=== PATIENT | female | born 1970 | race Caucasian/White ===

== ENCOUNTER 2021-02-04 14:16 | Emergency (ER) | payer BC ==
[2021-02-04] MEDS ORDERED: Sodium Chloride 0.9% 10 ML Syringe FLUSH PRN (14:19)
[2021-02-04] MEDS ORDERED: Sodium Chloride 0.9% 1,000 ML IV ONE (14:20)
[2021-02-04] MEDS ORDERED: HYDROmorphone 1 MG/ML Syringe IVPUSH ONE (14:20)
[2021-02-04] MEDS ORDERED: Ondansetron 4 MG/2 ML SDV IV ONE (14:20)
--- NOTE | 2021-02-04 14:21 | EDM.PDOC ---
ED HPI GENERAL MEDICAL PROBLEM - General Chief Complaint: Abdominal Pain Stated Complaint: ABDOMINAL PAIN / EUGENIA SENT HER Time Seen by Provider: 02/04/21 14:21 Source of Information: Reports: Patient, Old Records, Provider (Dr. Hayward), RN, RN Notes Reviewed History Limitations: Reports: No Limitations - History of Present Illness INITIAL COMMENTS - FREE TEXT/NARRATIVE: Pt sent to ER from clinic by Dr. Hayward with report of LLQ abdominal pain since yesterday. Pt denies diarrhea, bloody stool, or mucus in stool. Denies dysuria, fever, chills, or vomiting. Admits to nausea. The pain does not radiate. Onset: Gradual Duration: Constant, Getting Worse Location: Reports: Abdomen Quality: Reports: Ache Severity: Severe Improves with: Reports: None Worsens with: Reports: None Associated Symptoms: Reports: No Other Symptoms - Related Data Allergies Allergy/AdvReac Type Severity Reaction Status Date / Time amoxicillin Allergy Cannot Verified 02/04/21 14:50 Remember Penicillins Allergy Cannot Verified 02/04/21 14:50 Remember Home Meds: Home Meds Simvastatin [Zocor] 40 mg PO DAILY 11/09/15 [History] Glimepiride 1 mg PO DAILY 02/04/21 [History] metFORMIN [Glucophage] 1,000 mg PO BID 02/04/21 [History] Past Medical History Cardiovascular History: Reports: High Cholesterol Endocrine/Metabolic History: Reports: Obesity/BMI 30+ Social & Family History - Family History Family Medical History: No Pertinent Family History - Living Situation & Occupation Living situation: Reports: with Family ED ROS GENERAL - Review of Systems Review Of Systems: Comprehensive ROS is negative, except as noted in HPI. ED EXAM, GI/ABD - Physical Exam Exam: See Below Exam Limited By: No Limitations General Appearance: Alert, WD/WN, No Apparent Distress, Obese Eyes: Bilateral: Normal Appearance Nose: Normal Inspection Throat/Mouth: Normal Lips, Normal Voice, No Airway Compromise Head: Atraumatic, Normocephalic Neck: Normal Inspection Respiratory/Chest: No Respiratory Distress, Lungs Clear, Normal Breath Sounds, No Accessory Muscle Use, Chest Non-Tender Cardiovascular: Regular Rate, Rhythm GI/Abdominal Exam: Normal Bowel Sounds, Soft, No Organomegaly, No Distention, No Abnormal Bruit, No Mass, Pelvis Stable, Tender (LLQ). No: Guarding, Rigid, Rebound Back Exam: Normal Inspection. No: CVA Tenderness (L), CVA Tenderness (R) Extremities: Normal Inspection, Normal Range of Motion, Non-Tender, No Pedal Edema, Normal Capillary Refill Neurological: Alert, Oriented, Normal Cognition, No Motor/Sensory Deficits Psychiatric: Normal Mood Skin Exam: Warm, Dry, Intact, Normal Color, No Rash Course - Vital Signs Last Recorded V/S: Last Vital Signs Temp 98.5 F 02/04/21 14:51 Pulse 87 02/04/21 14:51 Resp 16 02/04/21 14:51 BP 160/64 H 02/04/21 14:51 Pulse Ox 100 02/04/21 14:51 - Orders/Labs/Meds Orders: Active Orders 24 hr Category Date Time Status Peripheral IV Care [RC] . DIRECTED Care 02/04/21 14:20 Active CULTURE BLOOD [BC] Stat Lab 02/04/21 14:33 Received CULTURE BLOOD [BC] Stat Lab 02/04/21 14:37 Received Sodium Chloride 0.9% [Saline Flush] Med 02/04/21 14:19 Active 10 ml FLUSH ASDIRECTED PRN Blood Culture x2 Reflex Set [OM.PC] Stat Oth 02/04/21 14:19 Ordered Peripheral IV Insertion Adult [OM.PC] Stat Oth 02/04/21 14:19 Ordered Medication Orders Sodium Chloride (Sodium Chloride 0.9% 10 Ml Syringe) 10 ml FLUSH ASDIRECTED PRN PRN Reason: Keep Vein Open Last Admin: 02/04/21 14:36 Dose: 10 ml Documented by: TRACI Labs: Laboratory Tests 02/04/21 02/04/21 02/04/21 Range/Units 14:33 14:33 14:33 WBC 19.1 H (5.0-10.0) 10^3/uL RBC 4.37 (4.2-5.4) 10^6/uL Hgb 13.4 (12.0-16.0) g/dL Hct 39.4 (37.0-47.0) % MCV 90.2 (80-100) fL MCH 30.7 (27.0-34.0) pg MCHC 34.0 (33.0-35.0) g/dL Plt Count 490 H (150-450) 10^3/uL Neut % (Auto) 76.2 H (42.2-75.2) % Lymph % (Auto) 15.6 L (20.5-50.1) % Benson % (Auto) 6.1 (2-8) % Eos % (Auto) 1.8 (1.0-3.0) % Baso % (Auto) 0.3 (0.0-1.0) % Sodium 140 (136-145) mmol/L Potassium 3.5 (3.5-5.1) mmol/L Chloride 101 (98-107) mmol/L Carbon Dioxide 29 (21-32) mmol/L Anion Gap 13.5 H (7-13) mEq/L BUN 11 (7-18) mg/dL Creatinine 0.66 (0.55-1.02) mg/dL Est Cr Clr Drug Dosing 95.46 mL/min Estimated GFR (MDRD) > 60 BUN/Creatinine Ratio 16.7 (No establ ref range) Glucose 95 (70-99) mg/dL Lactic Acid 0.8 (0.4-2.0) mmol/L Calcium 9.0 (8.5-10.1) mg/dL Total Bilirubin 1.3 H (0.2-1.0) mg/dL AST 20 (15-37) U/L ALT 52 (14-59) U/L Alkaline Phosphatase 46 (46-116) U/L C-Reactive Protein 1.7 H (0.0-0.9) mg/dL Total Protein 7.7 (6.4-8.2) g/dL Albumin 4.4 (3.4-5.0) g/dL Globulin 3.3 Albumin/Globulin Ratio 1.3 Amylase 56 (25-115) U/L Lipase 393 (73-393) U/L Urine Color (YELLOW) Urine Appearance (CLEAR) Urine pH (5.0-9.0) Ur Specific Stanton (1.005-1.030) Urine Protein (NEGATIVE) Urine Glucose (UA) (NEGATIVE) Urine Ketones (NEGATIVE) Urine Occult Blood (NEGATIVE) Urine Nitrite (NEGATIVE) Urine Bilirubin (NEGATIVE) Urine Urobilinogen (0.2-1.0) mg/dL Ur Leukocyte Esterase (NEGATIVE) 02/04/21 Range/Units 15:10 WBC (5.0-10.0) 10^3/uL RBC (4.2-5.4) 10^6/uL Hgb (12.0-16.0) g/dL Hct (37.0-47.0) % MCV (80-100) fL MCH (27.0-34.0) pg MCHC (33.0-35.0) g/dL Plt Count (150-450) 10^3/uL Neut % (Auto) (42.2-75.2) % Lymph % (Auto) (20.5-50.1) % Benson % (Auto) (2-8) % Eos % (Auto) (1.0-3.0) % Baso % (Auto) (0.0-1.0) % Sodium (136-145) mmol/L Potassium (3.5-5.1) mmol/L Chloride (98-107) mmol/L Carbon Dioxide (21-32) mmol/L Anion Gap (7-13) mEq/L BUN (7-18) mg/dL Creatinine (0.55-1.02) mg/dL Est Cr Clr Drug Dosing mL/min Estimated GFR (MDRD) BUN/Creatinine Ratio (No establ ref range) Glucose (70-99) mg/dL Lactic Acid (0.4-2.0) mmol/L Calcium (8.5-10.1) mg/dL Total Bilirubin (0.2-1.0) mg/dL AST (15-37) U/L ALT (14-59) U/L Alkaline Phosphatase (46-116) U/L C-Reactive Protein (0.0-0.9) mg/dL Total Protein (6.4-8.2) g/dL Albumin (3.4-5.0) g/dL Globulin Albumin/Globulin Ratio Amylase (25-115) U/L Lipase (73-393) U/L Urine Color Yellow (YELLOW) Urine Appearance Clear (CLEAR) Urine pH 5.0 (5.0-9.0) Ur Specific Stanton 1.025 (1.005-1.030) Urine Protein Negative (NEGATIVE) Urine Glucose (UA) Negative (NEGATIVE) Urine Ketones Trace H (NEGATIVE) Urine Occult Blood Negative (NEGATIVE) Urine Nitrite Negative (NEGATIVE) Urine Bilirubin Negative (NEGATIVE) Urine Urobilinogen 0.2 (0.2-1.0) mg/dL Ur Leukocyte Esterase Negative (NEGATIVE) Meds: Medications Generic Name Dose Route Start Last Admin Trade Name Frejose PRN Reason Stop Dose Admin Sodium Chloride 10 ml 02/04/21 14:19 02/04/21 14:36 Sodium Chloride 0.9% 10 Ml Syringe FLUSH 10 ml ASDIRECTED PRN Administration Keep Vein Open Discontinued Medications Generic Name Dose Route Start Last Admin Trade Name Bruce PRN Reason Stop Dose Admin Hydromorphone HCl 1 mg 02/04/21 14:20 02/04/21 14:35 Hydromorphone 1 Mg/Ml Syringe IVPUSH 02/04/21 14:21 1 mg ONETIME ONE Administration Sodium Chloride 1,000 mls @ 999 mls/hr 02/04/21 14:20 02/04/21 14:36 Normal Saline IV 02/04/21 15:20 999 mls/hr .BOLUS ONE Administration Ciprofloxacin/Dextrose 400 mg/ 200 mls @ 200 mls/hr 02/04/21 15:58 02/04/21 17:11 Premix IV 02/04/21 16:57 200 mls/hr ONETIME ONE Administration Metronidazole 500 mg/ Premix 100 mls @ 100 mls/hr 02/04/21 15:58 02/04/21 16:11 IV 02/04/21 16:57 100 mls/hr ONETIME ONE Administration Iopamidol 100 ml 02/04/21 15:22 02/04/21 15:56 Iopamidol 612 Mg/Ml 100 Ml Bottle IVPUSH 02/04/21 15:23 75 ml ONETIME ONE Administration Ondansetron HCl 4 mg 02/04/21 14:20 02/04/21 14:35 Ondansetron 4 Mg/2 Ml Sdv IV 02/04/21 14:21 4 mg ONETIME ONE Administration - Radiology Interpretation Free Text/Narrative:: Abdomen and pelvis CT: Multiple diverticula distal left colon without associated pericolonic inflammatory "dirty" peritoneal fat typical of acute infection i.e. diverticulitis LLQ. Gallbladder distended RUQ with either polyp or dependent noncalcified stone at the cystic duct. No pericystic fluid. Large liver homogenously dense without discrete intrahepatic mass lesion or intra/extrahepatic biliary duct dilatation. See rad report. Departure - Departure Time of Disposition: 18:36 Disposition: Home, Self-Care 01 Condition: Good Clinical Impression: Diverticulitis - Discharge Information *PRESCRIPTION DRUG MONITORING PROGRAM REVIEWED*: Not Applicable *COPY OF PRESCRIPTION DRUG MONITORING REPORT IN PATIENT INGRID: Not Applicable Instructions: Diverticulitis Forms: ED Department Discharge Additional Instructions: Rx: Flagyl 500mg *Do not drink alcohol while taking this medication. Rx: Cipro 500mg Follow up in clinic in 4 to 5 days for recheck. Return to ER if worse at any time. Sepsis Event Note (ED) - Focused Exam Vital Signs: Vital Signs Temp Pulse Resp BP Pulse Ox 02/04/21 14:51 98.5 F 87 16 160/64 H 100 - My Orders Last 24 Hours: My Active Orders 02/04/21 14:19 Sodium Chloride 0.9% [Saline Flush] 10 ml FLUSH ASDIRECTED PRN Blood Culture x2 Reflex Set [OM.PC] Stat Peripheral IV Insertion Adult [OM.PC] Stat 02/04/21 14:20 Peripheral IV Care [RC] . DIRECTED 02/04/21 14:33 CULTURE BLOOD [BC] Stat 02/04/21 14:37 CULTURE BLOOD [BC] Stat - Assessment/Plan Last 24 Hours: My Active Orders 02/04/21 14:19 Sodium Chloride 0.9% [Saline Flush] 10 ml FLUSH ASDIRECTED PRN Blood Culture x2 Reflex Set [OM.PC] Stat Peripheral IV Insertion Adult [OM.PC] Stat 02/04/21 14:20 Peripheral IV Care [RC] . DIRECTED 02/04/21 14:33 CULTURE BLOOD [BC] Stat 02/04/21 14:37 CULTURE BLOOD [BC] Stat
[2021-02-04 14:53] VITALS: BP 160/64; PULSE 87
[2021-02-04 15:12] LABS: ANION GAP 13.5 mEq/L (7-13); CHLORIDE,CL 101 mmol/L (98-107); SODIUM,NA 140 mmol/L (136-145)
[2021-02-04] MEDS ORDERED: Iopamidol 612 MG/ML 100 ML Bottle IVPUSH ONE (15:22)
[2021-02-04] MEDS ORDERED: Ciprofloxacin in D5W 400 MG in Premix Bag 1 BAG IV ONE ×2 (15:58)
[2021-02-04] MEDS ORDERED: metroNIDAZOLE/Normal Saline 500 MG in Premix Bag 100 BAG IV ONE (15:58)
--- NOTE | 2021-02-04 16:09 | CT ---
EXAMINATION: Abdomen Pelvis w Cont SEX: Female AGE: 50 years CLINICAL HISTORY: 50-year-old 188 pound diabetic female ex-smoker with severe left lower quadrant pain and abnormally elevated WBC (greater than 19,000). Scan technique: Volume acquisition of data from the abdomen and pelvis obtained after oral and obtained without oral contrast and during the intravenous administration 75 cc nonionic Isovue contrast at 3 cc/s via injector while patient was lying supine on the Siemens multislice scanner [place], [place]. All data archived in the PACS system for storage, reformatting axial/sagittal/coronal planes and study. Interpretation: Abnormal. 1. *Multiple diverticula distal left colon without associated pericolonic inflammatory "dirty" peritoneal fat typical of acute infection i.e. DIVERTICULITIS LLQ. 2. Gallbladder distended RUQ with either polyp or dependent noncalcified stone at the cystic duct. No pericystic fluid. Large liver homogeneously dense without discrete intrahepatic mass lesion or intra/extrahepatic biliary duct dilatation. 3. Stomach, spleen, pancreas, adrenal glands and kidneys anatomically correct i.e. negative. 4. Densely calcified "cast" small caliber aortoiliac vessels. No aneurysm or dissection. 5. No pelvic or abdominal mass lesion, ventral wall hernia, signs of mechanical bowel obstruction, ascites or free intraperitoneal air. Normal long retrocecal appendix. Terminal ileum unremarkable. 6. Osteopenia; exaggerated lumbar lordosis; no pathologic skeletal lesion, lumbar fracture or dislocation. 7. Normal midline uterus. No adnexal mass lesions. Unenhanced urinary bladder unremarkable. 8. Normal cardiac silhouette. No pericardial or pleural effusions. Lung bases clear.
== END 2021-02-04 18:50 | disposition home or self-care (01) ==
LOC: DL.ED 14:16
DX: K57.32 Diverticulitis of large intestine without perforation or abscess without bleeding (principal); E78.00 Pure hypercholesterolemia, unspecified; E66.9 Obesity, unspecified; Z68.30 Body mass index [BMI] 30.0-30.9, adult; Z79.899 Other long term (current) drug therapy; Z88.0 Allergy status to penicillin
CPT/HCPCS: 36415; 74177; 80053; 81003; 82150; 83605; 83690; 85025; 86140; 87040; 96365; 96367; 96375; 99284; 99284-25; J0744; J1170; J2405; J3490; J7030; Q9967